=== PATIENT | male | born 1995 | race Hispanic/Latino ===

== ENCOUNTER 2018-07-27 18:59 | Emergency (ER) | payer SELFPAY ==
--- NOTE | 2018-07-27 19:14 | ED.PDOC ---
History of Present Illness - General Chief Complaint: Upper Extremity Injury Time Seen by Provider: 07/27/18 19:09 Source: patient Exam Limitations: no limitations - History of Present Illness Initial Comments: Steel I-beam fell onto L hand this am. He was able to lift beam off his hand Occurred: this morning Pain - Upper Extremity: severe: Hand, left Method of Injury: other - crush Improving Factors: nothing Worsening Factors: movement Allergies/Adverse Reactions: Allergies NO KNOWN ALLERGY Allergy (Verified 07/27/18 19:20) Home Medications: Ambulatory Orders Tramadol HCl 50 mg PO Q6HR PRN #15 tab 07/27/18 Review of Systems - Review of Systems Constitutional: States: no symptoms reported EENTM: States: no symptoms reported Respiratory: States: no symptoms reported Cardiology: States: no symptoms reported Gastrointestinal/Abdominal: States: no symptoms reported Genitourinary: States: no symptoms reported Musculoskeletal: States: muscle pain, muscle stiffness Skin: States: no symptoms reported Neurological: States: no symptoms reported. Denies: numbness, paresthesia, tingling, weakness Endocrine: States: no symptoms reported Past Medical History (General) - Patient Medical History Hx Seizures: No Hx Stroke: No Hx Dementia: No Hx Asthma: No Hx of COPD: No Hx Cardiac Disorders: No Hx Congestive Heart Failure: No Hx Pacemaker: No Hx Hypertension: No Hx Thyroid Disease: No Hx Diabetes: No Hx Gastroesophageal Reflux: No Hx Renal Disease: No Hx Cancer: No Hx of HIV: No Hx Hepatitis C: No Hx MRSA: No - Vaccination History Hx Tetanus, Diphtheria Vaccination: No Hx Influenza Vaccination: No Hx Pneumococcal Vaccination: No - Social History Hx Tobacco Use: Yes Hx Chewing Tobacco Use: No Hx Alcohol Use: Yes Hx Substance Use: No Hx Substance Use Treatment: No Hx Depression: No Hx Physical Abuse: No Hx Emotional Abuse: No Family Medical History - Family History Father Hx Family Hypertension: Yes Physical Exam - Physical Exam General Appearance: Alert, Anxious, Obvious distress Eyes, Ears, Nose, Throat Exam: PERRL/EOMI Shoulder Exam: normal inspection Elbow/Forearm Exam: normal inspection, non-tender, no evidence of injury, normal ROM Wrist Exam: normal inspection, non-tender, no evidence of injury, normal ROM Hand Exam: bone tenderness - without deformity, limited ROM, swelling - 1+ edema to dorsum Neuro/Tendon: normal sensation, normal motor functions, no evidence tendon injury Mental Status: alert Skin Exam: normal color Progress - EKG/XRAY/CT XRAY: hand - neg for Fx Departure - Departure Clinical Impression: Crushing injury of left hand Qualifiers: Encounter type: initial encounter Qualified Code(s): S67.22XA - Crushing injury of left hand, initial encounter Disposition: Discharge to Home or Self Care Departure Forms: ED Discharge - Pt. Copy, Patient Portal Self Enrollment Instructions: DI for Arm Pain Prescriptions: Tramadol HCl 50 mg PO Q6HR PRN #15 tab PRN Reason: Moderate To Severe Pain Home Medications: Ambulatory Orders Tramadol HCl 50 mg PO Q6HR PRN #15 tab 07/27/18
[2018-07-27 19:20] VITALS: TEMP 98
--- NOTE | 2018-07-27 20:05 | RAD ---
EXAM: Hand,Left 3 Views CLINICAL INDICATION: 22-year-old male crush injury. TECHNIQUE: Three views LEFT hand were obtained in AP, lateral and oblique projections COMPARISON: None. FINDINGS: There is no fracture or dislocation. The joint spaces are preserved. Suspected soft tissue swelling of the dorsum of the hand. IMPRESSION: Suspected soft tissue swelling dorsum of the hand without fracture or dislocation. Electronically signed by: Serena Kaplan MD 07/27/2018 8:03 PM CDT
[2018-07-27 20:47] VITALS: BP 127/82; O2SAT 98
== END 2018-07-27 20:25 | disposition home or self-care (01) ==
LOC: ER 18:59
DX: S67.22XA Crushing injury of left hand, initial encounter (principal); Z87.891 Personal history of nicotine dependence; W20.8XXA Other cause of strike by thrown, projected or falling object, initial encounter; Y92.9 Unspecified place or not applicable